=== PATIENT | female | born 1985 | race Caucasian/White ===

== ENCOUNTER 2016-11-18 14:12 | Observation (INO) | payer BC ==
[~2016-11-18] VITALS: Ht 175.3 cm; Wt 67.2 kg
[2016-11-18] MEDS ORDERED: PREN1TAB60 PO (14:52)
[2016-11-18 15:11] VITALS: BP 118/63
[2016-11-18 15:15] LABS: HEMOGLOBIN 13.3 g/dL (11.7-16.4)
[2016-11-18] MEDS ORDERED: TERBUTALINE 1 MG/ML, 1ML ONE (16:32)
[2016-11-18 16:50] LABS: ASPARTATE AMINO TRANSFERASE 6 U/L (15-37); BLOOD UREA NITROGEN 9 mg/dL (7-18)
[2016-11-18] MEDS ORDERED: TERBUTALINE 1 MG/ML, 1ML SQ ONE (17:00)
== END 2016-11-18 18:20 | disposition home or self-care (01) ==
LOC: LDOP 14:12 → LDIP 16:29
PROVIDERS: ADMIT Obstetrics & Gynecology; ATTEND Obstetrics & Gynecology
DX: O62.9 Abnormality of forces of labor, unspecified (principal); O26.892 Other specified pregnancy related conditions, second trimester; R10.9 Unspecified abdominal pain; Z3A.19 19 weeks gestation of pregnancy
CPT/HCPCS: 36415; 76705; 76815; 76856; 80053; 81003; 85025; 87086; 96372; G0378; J3105

== ENCOUNTER 2020-01-08 05:39 | Inpatient (IN) | payer BC ==
[~2020-01-08] VITALS: Ht 175.3 cm; Wt 78.0 kg
[~2020-01-08 05:39] MED LIST: IBUP-1222 PO; OXYC-302 PO; PREN1TAB60 PO; SENN-92 PO
[2020-01-08] MEDS ORDERED: LACTATED RINGERS 1,000 ML IV SCH (05:40)
[2020-01-08] MEDS ORDERED: NEWBORN KIT ONE (05:44)
[2020-01-08] MEDS ORDERED: METOCLOPRAMIDE 5 MG/ML, 2ML ONE (05:45)
[2020-01-08] MEDS ORDERED: SODIUM CITRATE/CITRIC ACID 30 ML UDC ONE (05:45)
[2020-01-08] MEDS ORDERED: OXYTOCIN 30U/ 0.9% NaCL 500ML 500 ML ONE (05:46)
[2020-01-08] MEDS ORDERED: LACTATED RINGERS 1,000 ML IVBOLUS ONE (06:00)
[2020-01-08] MEDS ORDERED: ONDANSETRON 2MG/ML, 2ML IVPush ONE (06:00)
[2020-01-08] MEDS ORDERED: AZITHROMYCIN 500 MG in SODIUM CHLORIDE 0.9% 250 ML IV ONE (06:00)
[2020-01-08] MEDS ORDERED: METOCLOPRAMIDE 5 MG/ML, 2ML IV ONE (06:00)
[2020-01-08] MEDS ORDERED: CEFAZOLIN PMX 1GM/50ML 50 ML IVPB ONE (06:00)
[2020-01-08] MEDS ORDERED: CALCIUM CARBONATE 500 MG TAB.CHEW PO PRN ×2 (06:00→09:00)
[2020-01-08] MEDS ORDERED: SODIUM CITRATE/CITRIC ACID 30 ML UDC PO ONE (06:00)
[2020-01-08 06:06] LABS: BASOPHILS # (AUTO) 0.02 x10^3/uL (0-0.1); BASOPHILS % (AUTO) 0 % (0-1); EOSINOPHILS # (AUTO) 0.09 x10^3/uL (0-0.4); EOSINOPHILS % (AUTO) 1 % (1-7); LYMPHOCYTES % (AUTO) 19 % (22-44); MD NO; MEAN CORPUSCULAR HEMOGLOBIN 33.2 pg (27.0-34.8); MEAN CORPUSCULAR HGB CONC 33.9 g/dL (32.4-35.8); MEAN CORPUSCULAR VOLUME 98.1 fL (80-100); MEAN PLATELET VOLUME 8.3 fL (7.4-10.4); MONOCYTES # (AUTO) 0.62 x10^3/uL (0.2-0.8); MONOCYTES % (AUTO) 7 % (2-9); NEUTROPHILS # (AUTO) 6.22 x10^3/uL (1.8-6.8); NEUTROPHILS % (AUTO) 73 % (42-75); PLATELET COUNT 284 x10^3/uL (130-400); RED CELL DISTRIBUTION WIDTH 13.9 % (9.6-15.2)
[2020-01-08] MEDS ORDERED: PHENYLEPHRINE 10 MG/ML ONE (07:10)
[2020-01-08] MEDS ORDERED: KETOROLAC 30 MG/1 ML ONE (07:10)
[2020-01-08] MEDS ORDERED: ONDANSETRON 2MG/ML, 2ML ONE (07:10)
[2020-01-08] MEDS ORDERED: DEXAMETHASONE 4 MG/ML, 1ML ONE (07:10)
[2020-01-08] MEDS ORDERED: CEFAZOLIN 1,000 MG ONE (07:10)
[2020-01-08] MEDS ORDERED: OXYTOCIN 10 UNITS/ML, 1ML ONE (07:10)
[2020-01-08] MEDS ORDERED: EPHEDRINE 50 MG/ML, 1ML ONE (07:10)
[2020-01-08] MEDS ORDERED: FENTANYL PF 100 MCG/2ML ONE (07:10)
[2020-01-08] MEDS ORDERED: OXYcodone 5 MG/5 ML ORAL.SOL UDC PO PRN (07:30)
[2020-01-08] MEDS ORDERED: ALBUTEROL/IPRATROPIUM 2.5MG/0.5MG, 3 ML NPPB PRN (07:30)
[2020-01-08] MEDS ORDERED: HYDROmorphone 2 MG/ML, 1ML IVPush PRN (07:30)
[2020-01-08] MEDS ORDERED: hydrALAzine 20 MG/ML, 1ML IV PRN (07:30)
[2020-01-08] MEDS ORDERED: EPHEDRINE 50 MG/ML, 1ML IVPush PRN (07:30)
[2020-01-08] MEDS ORDERED: HYDROcodone/APAP 7.5-325MG/15ML UDC PO PRN (07:30)
[2020-01-08] MEDS ORDERED: FENTANYL PF 100 MCG/2ML IV PRN (07:30)
[2020-01-08] MEDS ORDERED: ONDANSETRON 2MG/ML, 2ML IVPush PRN (07:30)
[2020-01-08] MEDS ORDERED: LABETALOL 5MG/ML, 20ML IV PRN (07:30)
[2020-01-08] MEDS ORDERED: MEPERIDINE/PF 25MG/0.5ML IVPush PRN (07:30)
[2020-01-08] MEDS ORDERED: MIDAZOLAM 1 MG/ML, 2ML IV PRN (07:30)
[2020-01-08] MEDS ORDERED: PROMETHAZINE 25 MG/ML, 1ML IV PRN (07:30)
[2020-01-08] MEDS ORDERED: HYDROmorphone 2 MG/ML, 1ML ONE (07:52)
[2020-01-08] MEDS: OXYTOCIN 30U/ 0.9% NaCL 500ML 500 ML IV SCH ×2 (08:40→18:41)
[2020-01-08] MEDS: LACTATED RINGERS 1,000 ML IV SCH ×4 (08:41→18:41)
[2020-01-08] MEDS ORDERED: HYDROcodone/APAP 7.5-325MG/15ML UDC ONE (08:59)
[2020-01-08] MEDS ORDERED: TRANEXAMIC ACID 1,000 MG in SODIUM CHLORIDE 0.9% 100 ML IVPB ONE (09:00)
[2020-01-08] MEDS ORDERED: CARBOPROST TROMETHAMINE 250 MCG/ML, 1ML IM PRN (09:00)
[2020-01-08] MEDS: PRENATAL VIT/IRON/FA 1 EACH TABLET PO SCH (09:00)
[2020-01-08] MEDS ORDERED: ACETAMINOPHEN 325 MG TABLET PO PRN (09:00)
[2020-01-08] MEDS ORDERED: RHOGAM FROM BLOOD BANK 1 NOTE EA IM/IV ONE (09:00)
[2020-01-08] MEDS ORDERED: MORPHINE SULFATE 4 MG/ML, 1ML IVPush PRN (09:00)
[2020-01-08] MEDS ORDERED: morphine SULFATE 10 MG/ML, 1ML IV PRN (09:00)
[2020-01-08] MEDS ORDERED: METHYLERGONOVINE 0.2 MG/ML IM PRN (09:00)
[2020-01-08] MEDS ORDERED: SIMETHICONE 80 MG CHEW TAB PO PRN (09:00)
[2020-01-08] MEDS ORDERED: OXYcodone/APAP 5/325MG TABLET PO PRN (09:00)
[2020-01-08] MEDS ORDERED: MISOPROSTOL 200 MCG TABLET PR PRN (09:00)
[2020-01-08] MEDS ORDERED: ONDANSETRON 2MG/ML, 2ML IV PRN (09:00)
[2020-01-08 11:00] VITALS: BP 106/64
[2020-01-08] MEDS: OXYcodone/APAP 5/325MG TABLET PO PRN ×3 (13:13→21:19)
[2020-01-08 15:00] VITALS: BP 103/62
[2020-01-08 16:28] LABS: MEAN CORPUSCULAR HEMOGLOBIN 33.5 pg (27.0-34.8); MEAN CORPUSCULAR HGB CONC 34.4 g/dL (32.4-35.8); MEAN CORPUSCULAR VOLUME 97.4 fL (80-100); MEAN PLATELET VOLUME 8.3 fL (7.4-10.4); PLATELET COUNT 272 x10^3/uL (130-400); RED BLOOD COUNT 3.37 x10^6/uL (3.82-5.3); RED CELL DISTRIBUTION WIDTH 13.6 % (9.6-15.2)
[2020-01-08 17:15] LABS: BASOPHILS # (AUTO) 0.01 x10^3/uL (0-0.1); BASOPHILS % (AUTO) 0 % (0-1); EOSINOPHILS # (AUTO) 0.09 x10^3/uL (0-0.4); EOSINOPHILS % (AUTO) 1 % (1-7); LYMPHOCYTES # (AUTO) 0.94 x10^3/uL (1-3.4); LYMPHOCYTES % (AUTO) 8 % (22-44); MD SCAN; MONOCYTES # (AUTO) 0.56 x10^3/uL (0.2-0.8); MONOCYTES % (AUTO) 5 % (2-9); NEUTROPHILS # (AUTO) 10.84 x10^3/uL (1.8-6.8); NEUTROPHILS % (AUTO) 87 % (42-75)
[2020-01-08] MEDS: IBUPROFEN 600 MG TABLET PO PRN (18:30)
[2020-01-08 19:55] VITALS: BP 101/66
[2020-01-09] MEDS: LACTATED RINGERS 1,000 ML IV SCH ×5 (00:20→16:35)
[2020-01-09] MEDS: IBUPROFEN 600 MG TABLET PO PRN ×4 (00:23→19:39)
[2020-01-09 00:27] VITALS: BP 99/65
[2020-01-09] MEDS: OXYcodone/APAP 5/325MG TABLET PO PRN ×5 (01:46→19:39)
[2020-01-09 04:04] VITALS: BP 102/68
[2020-01-09] MEDS: OXYTOCIN 30U/ 0.9% NaCL 500ML 500 ML IV SCH ×2 (04:41→16:35)
[2020-01-09] MEDS: DOCUSATE 100 MG CAPSULE PO PRN ×2 (08:48→19:39)
[2020-01-09] MEDS: PRENATAL VIT/IRON/FA 1 EACH TABLET PO SCH (08:48)
[2020-01-09 09:25] VITALS: BP 96/65
[2020-01-09 20:00] VITALS: BP 104/70
[2020-01-10] MEDS: OXYcodone/APAP 5/325MG TABLET PO PRN ×2 (00:19→10:40)
[2020-01-10] MEDS: LACTATED RINGERS 1,000 ML IV SCH ×4 (00:41→10:41)
[2020-01-10] MEDS: OXYTOCIN 30U/ 0.9% NaCL 500ML 500 ML IV SCH ×2 (00:41→10:41)
[2020-01-10] MEDS: IBUPROFEN 600 MG TABLET PO PRN ×2 (02:05→08:04)
[2020-01-10 07:30] VITALS: BP 107/69
[2020-01-10] MEDS: PRENATAL VIT/IRON/FA 1 EACH TABLET PO SCH (08:04)
[2020-01-10] MEDS: DOCUSATE 100 MG CAPSULE PO PRN (08:04)
[2020-01-10] MEDS ORDERED: OXYC-302 PO (08:43)
[2020-01-10] MEDS ORDERED: IBUP-1222 PO (08:43)
== END 2020-01-10 12:05 | disposition home or self-care (01) | DRG 788 ==
LOC: LDIP 05:39 → 2NW 10:31
PROVIDERS: ADMIT Obstetrics & Gynecology; ATTEND Obstetrics & Gynecology
PROC: 10D00Z1 Extraction of Products of Conception, Low, Open Approach (ICD-10-PCS; principal; 2020-01-08)
PROC: 0WQF0ZZ Repair Abdominal Wall, Open Approach (ICD-10-PCS; 2020-01-08)
PROC: 3E0234Z Introduction of Serum, Toxoid and Vaccine into Muscle, Percutaneous Approach (ICD-10-PCS; 2020-01-08)
DX: O69.81X0 Labor and delivery complicated by cord around neck, without compression, not applicable or unspecified (principal); O34.211 Maternal care for low transverse scar from previous cesarean delivery; Z37.0 Single live birth; Z3A.39 39 weeks gestation of pregnancy; Z67.91 Unspecified blood type, Rh negative; Z85.831 Personal history of malignant neoplasm of soft tissue; Z92.21 Personal history of antineoplastic chemotherapy; Z92.3 Personal history of irradiation
CPT/HCPCS: 36415; 85025; 85461; 86592; 86850; 86900; G0378; J0690; J1100; J1170; J1885; J2405; J2790; J3010; C1765; J2370; J2590; J2765; J7120